=== PATIENT | female | born 1995 ===

== ENCOUNTER 2022-05-04 12:16 | Outpatient (REF) | payer OTHER, SELFPAY ==
[2022-05-04 14:37] LABS: Syphilis Screen Nonreactive (Nonreactive)
[2022-05-04 18:21] LABS: CT PCR NOT DETECTED (Not Detect.); NG PCR NOT DETECTED (Not Detect.)
[2022-05-05 09:25] LABS: HIV AB/AG Nonreactive (Nonreactive); HIV Num 1 0.08 S/CO (0.00-0.99)
[2022-05-05 17:22] LABS: Herpes Simplex Type 1 IgG <0.90 index; Herpes Simplex Type 2 IgG <0.90 index
== END 2022-05-04 12:17 | disposition home or self-care (01) ==
LOC: HO.10HDL 12:16
PROVIDERS: Visit Provider Internal Medicine
DX: Z00.00 Encounter for general adult medical examination without abnormal findings (principal); Z11.4 Encounter for screening for human immunodeficiency virus [HIV]; Z11.3 Encounter for screening for infections with a predominantly sexual mode of transmission
CPT/HCPCS: 86695; 86696; 86780; 87389; 87491; 87591

== ENCOUNTER 2023-04-03 12:42 | Outpatient (REF) | payer MEDICAID, SELFPAY | END 2023-04-03 12:43 | disposition home or self-care (01) | LOC: HO.LAB 12:42 | PROVIDERS: PCP Internal Medicine; Visit Provider Internal Medicine | DX: Z13.89 Encounter for screening for other disorder (principal) ==

== ENCOUNTER 2023-10-08 19:07 | Emergency (ER) | payer MEDICAID, SELFPAY ==
--- NOTE | ~2023-10-08 | XR_ITS ---
EXAMINATION: XR FINGER, LEFT CLINICAL INFORMATION: Laceration index finger COMPARISON: None available. TECHNIQUE: Three views of the left thumb. FINDINGS: No acute visible fracture or dislocation. Joint space alignment are maintained. Soft tissue defect noted along the volar aspect of the first distal interphalangeal joints. No definite radiopaque foreign body identified. XR/XR finger LT min 2V IMPRESSION: 1. No acute visible fracture or dislocation. 2. Soft tissue defect noted along the volar aspect of the first distal interphalangeal joint. 3. No definite radiopaque foreign body identified.
[2023-10-08 19:34] VITALS: BP 112/72; PULSE 84; RESP 18; TEMP 37; O2SAT 100; BMI 32.3
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
[2023-10-08] MEDS: Ibuprofen 600 MG TABLET PO (22:48)
[2023-10-08] MEDS: Diphth,Pertus(ACell),Tet Adult 0.5 ML SYRINGE IM (22:49)
[2023-10-08 22:53] VITALS: BP 112/69; PULSE 78; RESP 18; TEMP 37.1; O2SAT 99
== END 2023-10-08 22:54 | disposition home or self-care (01) ==
PROVIDERS: Emergency Provider Emergency Medicine; PCP Internal Medicine
DX: S61.012A Laceration without foreign body of left thumb without damage to nail, initial encounter (principal); S60.512A Abrasion of left hand, initial encounter; W26.0XXA Contact with knife, initial encounter; Y93.9 Activity, unspecified; Y92.9 Unspecified place or not applicable; Y99.8 Other external cause status; Z23 Encounter for immunization
CPT/HCPCS: 12002; 73140; 90471; 90715; 99283; 99284

== ENCOUNTER 2024-01-17 01:23 | Emergency (ER) | payer MEDICAID, SELFPAY ==
--- NOTE | 2024-01-17 | ECG_ITS ---
Test Reason : CHEST PAIN Blood Pressure : / mmHG Vent. Rate : 095 BPM Atrial Rate : 095 BPM P-R Int : 148 ms QRS Dur : 090 ms QT Int : 372 ms P-R-T Axes : 080 056 002 degrees QTc Int : 467 ms Normal sinus rhythm Nonspecific T wave abnormality Prolonged QT Abnormal ECG No previous ECGs available Referred By: Generic ED Physician Electronically Signed By:CELESTINO BARCENAS MD
[2024-01-17 01:25] VITALS: BP 123/73; PULSE 93; RESP 18; TEMP 36.8; O2SAT 100; BMI 29.0
[2024-01-17 01:46] LABS: Basophils Percent Auto 0.3 % (0-2); Eosinophils Absolute Auto 0.1 X10*3/uL (0.0-0.4); Eosinophils Percent Auto 0.6 % (0-4); Hematocrit 33.9 % (37.0-47.0); Hemoglobin 11.4 g/dl (12.0-16.0); Imm Gran Abs Auto 0.01 X10*3/uL (0.00-0.03); Imm Gran Pct Auto 0.1 % (0.0-0.4); Lymphocytes Absolute Auto 3.9 X10*3/uL (1.2-4.9); Lymphocytes Percent Auto 42.5 % (20-40); MANUAL DIFF FLAG NO; Mean Corpuscular HGB Conc 33.6 g/dl (31.0-35.0); Mean Corpuscular Hemoglobin 28.6 pg (27.0-33.0); Mean Corpuscular Volume 85.2 fL (80.0-98.0); Mean Platelet Volume 9.8 fL (9.4-12.3); Monocytes Absolute Auto 0.6 X10*3/uL (0.1-1.2); Monocytes Percent Auto 6.7 % (2-11); Neutrophils Absolute Auto 4.6 x10*3/uL (2.0-8.3); Neutrophils Percent Auto 49.8 % (45-73); Platelet Count 217 X10*3/uL (160-400); Red Blood Count 3.98 X10*6/uL (4.20-5.50); Red Cell Distribution Width 12.7 % (11.0-16.0); White Blood Count 9.2 X10*3/uL (4.8-10.8)
[2024-01-17 02:01] LABS: Alanine Aminotransferase 11 U/L (0-31); Albumin Level 4.4 g/dL (3.5-5.0); Alkaline Phosphatase 45 U/L (39-117); Anion Gap 12 (12-20); Aspartate Amino Transferase 12 U/L (5-31); Bilirubin Total 0.5 mg/dL (0.0-1.0); Blood Urea Nitrogen 11 mg/dL (9-16); Calcium 9.7 mg/dL (8.4-10.2); Carbon Dioxide 25 mmol/L (22-29); Chloride 108 mmol/L (96-108); Creatinine Clr Calc Pharmacy 125.9; Estimated Glomerular Filt Rate > 60; Glucose Random 94 mg/dL (60-115); Potassium 3.1 mmol/L (3.3-5.1); Sodium 142 mmol/L (135-145); Total Protein 7.2 g/dL (6.5-8.0)
[2024-01-17 02:12] LABS: Troponin-I High Sensitivity < 2.7 ng/L (<3.5-17.0)
[2024-01-17 02:26] LABS: Magnesium 2.1 mg/dL (1.6-2.6)
--- NOTE | 2024-01-17 03:10 | ED_ITS ---
HPI - Chest Pain General Chief Complaint: Chest Pain Stated Complaint: chest pains Time Seen by Provider: 01/17/24 03:05 Source: patient and old records reviewed Mode of arrival: ambulatory Limitations: no limitations History of Present Illness ED Provider: AMRITA MENDOZA narrative: 28 yo female with PMH of anxiety here with c/o chest pain, anxiety and palpitations - no travel, OCP use, procedures no known heart disease, no recent URI. Has life stress she has been dealing with makes her feel like her chest is tight MD complaint: chest pain Onset (ago): week(s) (1) Timing of current episode: constant Prior episodes: Yes Onset: during rest and during exertion Pain location: substernal Pain radiation: none Severity: moderate Quality: tightness Relieving factors: nothing Exacerbating factors: stress Associated symptoms: sense of impending doom and palpitations Treatment prior to arrival: none Related Data Previous Rx's ?Medication ?Instructions ?Recorded ibuprofen 600 mg tablet 600 mg PO Q6H PRN fever or pain 10/08/23 #14 tabs hydroxyzine HCl 25 mg tablet 25 mg PO BID PRN anxiety #30 tabs 01/17/24 Allergies Allergy/AdvReac Type Severity Reaction Status Date / Time No Known Allergies Allergy Verified 01/17/24 01:26 Review of Systems 2 Review of Systems: Constitutional : No Weight loss, No Fever, No Chills ENT/Mouth : No sore throat, No Rhinorrhea Eyes: No Eye Pain, No Swelling Cardiovascular : pos Chest Pain, no SOB, no Dyspnea on Exertion, No Orthopnea, No Edema, No Palpitations Respiratory : No Cough, No Sputum Gastrointestinal : no Nausea, No Vomiting, No Diarrhea, No abdominal Pain, No Hematochezia, No Melena Genitourinary : No Dysuria, No Urinary Frequency Musculoskeletal : No joint pain, No Myalgias, No Joint Swelling Skin : No Skin Lesions, No rash Neuro : No Weakness, No Numbness, No Dizziness, No Headache Psych : pos Anxiety/Panic, No Depression All other systems reviewed and are negative [facility] Past Medical History Attestation statement: The following information was validated with the patient. Source: old records reviewed Medical History Anxiety Social History Social History Advance Directives: No Advance Directives Information Provided: Yes Do you have a plan to hurt others: No Plan Physical Exam 2 Vital Signs: Vital Signs: Last Vital Signs Temp 98.2 F 01/17/24 01:25 Pulse 93 01/17/24 01:25 Resp 18 01/17/24 01:25 BP 123/73 01/17/24 01:25 Pulse Ox 100 01/17/24 01:25 O2 Del Method Room Air 01/17/24 01:25 BMI result Body Mass Index 29.0 Appearance: Alert. Oriented X3. No acute distress. Eyes: Pupils equal, round and reactive to light. ENT: Pharynx normal. Neck: Normal inspection. Neck supple. CVS: Normal heart rate and rhythm. Pulses normal. Respiratory: No respiratory distress. Breath sounds normal. Abdomen: Soft and nontender. Skin: Skin warm and dry. Normal skin color. Normal skin turgor. Extremities: No lower extremity edema. No calf ttp Neuro: Oriented X 3. No motor deficit. No sensory deficit. Medications Administered Discontinued Medications Generic Name Dose Route Start Last Admin Trade Name Freq PRN Reason Stop Dose Admin Lorazepam 0.5 mg 01/17/24 03:19 01/17/24 03:35 Lorazepam 0.5 Mg Tablet PO 01/17/24 03:20 0.5 mg ONCE ONE Administration Potassium Chloride 40 meq 01/17/24 02:11 01/17/24 03:35 Potassium Chloride Er 20 Meq Tab.Er.Prt PO 01/17/24 02:12 40 meq ONCE ONE Administration Medical Decision Making Medical Decision Making [facility] [place] Narrative: 28 yo female with PMH of anxiety here with c/o anxiety and chest pain/palpitations for 1 week brought on by life stress - no OCPs, travel, procedures risk factors for ACS. She denies n/v/d dyspnea. She does not have therapist. At this time labs, EKG, troponin x 1. PERC negative, doubt dissection distal pulses intact, Doubt ACS no risk factors. Does not have SI/HI can follow up with therapy as outpatient Differential Diagnosis Differential Diagnoses: The differential diagnosis associated with the presentation includes atypical chest pain anxiety PERC Negative doubt VTE distal pulses intact doubt dissection Admission/Observation Consideration of admission/observation: Escalation of care including admission/observation considered negative workup stable for DC Lab Data [facility] [place] Lab Attestation statement: I reviewed the patient's lab results. 01/17/24 01:41 01/17/24 01:41 Labs: Lab Results 01/17/24 Range/Units 01:41 WBC 9.2 (4.8-10.8) X10*3/uL RBC 3.98 L (4.20-5.50) X10*6/uL Hgb 11.4 L (12.0-16.0) g/dl Hct 33.9 L (37.0-47.0) % MCV 85.2 (80.0-98.0) fL MCH 28.6 (27.0-33.0) pg MCHC 33.6 (31.0-35.0) g/dl RDW 12.7 (11.0-16.0) % Plt Count 217 (160-400) X10*3/uL MPV 9.8 (9.4-12.3) fL Immature Gran % (Auto) 0.1 (0.0-0.4) % Neut % (Auto) 49.8 (45-73) % Lymph % (Auto) 42.5 H (20-40) % Tama % (Auto) 6.7 (2-11) % Eos % (Auto) 0.6 (0-4) % Baso % (Auto) 0.3 (0-2) % Lymph # (Auto) 3.9 (1.2-4.9) X10*3/uL Tama # (Auto) 0.6 (0.1-1.2) X10*3/uL Eos # (Auto) 0.1 (0.0-0.4) X10*3/uL Baso # (Auto) 0.0 (0.0-0.2) X10*3/uL Abs Immat Gran (auto) 0.01 (0.00-0.03) X10*3/uL Absolute Neuts (auto) 4.6 (2.0-8.3) x10*3/uL Absolute Nucleated RBC 0.000 (0.0-0.012) X10*3/uL Nucleated RBC % (auto) 0.0 (0.0-0.2) /100WBC Sodium 142 (135-145) mmol/L Potassium 3.1 L (3.3-5.1) mmol/L Chloride 108 (96-108) mmol/L Carbon Dioxide 25 (22-29) mmol/L Anion Gap 12 (12-20) BUN 11 (9-16) mg/dL Creatinine 0.71 (0.5-1.4) mg/dL Estim Creat Clear Calc 125.9 Estimated GFR > 60 Random Glucose 94 (60-115) mg/dL Calcium 9.7 (8.4-10.2) mg/dL Magnesium 2.1 (1.6-2.6) mg/dL Total Bilirubin 0.5 (0.0-1.0) mg/dL AST 12 (5-31) U/L ALT 11 (0-31) U/L Alkaline Phosphatase 45 (39-117) U/L Troponin I High Sens < 2.7 (<3.5-17.0) ng/L Total Protein 7.2 (6.5-8.0) g/dL Albumin 4.4 (3.5-5.0) g/dL Independent Interpretation I performed an independent interpretation of an: EKG Interpretation: Rate: 95 Rhythm: NSR [place]: normal Normal P waves. Normal JULY. Normal QRS complex. ST T wave : inverted t wave III, no LEILANI, nonspecific ST T wave changes lateral leads qTC: 467 prior studies: no prior The study has been interpreted contemporaneously by me. . Prescription Management I considered prescription management with: Other Discharge Plan Discharge Clinical Impression: Atypical chest pain, Acute hypokalemia, Anxiety Patient Disposition: Home, Self-Care Instructions: Chest Pain (ED), Hypokalemia (ED), Anxiety (ED) Additional Instructions: very mild anemia your doctor can monitor this is is very mild low potassium we repleted it please monitor your symptoms return for any worsening symptoms or concerns you can contact [facility] there are two offices [place] or [place] call to schedule appointment Prescriptions: New hydroxyzine HCl 25 mg tablet 25 mg PO BID PRN (Reason: anxiety) Qty: 30 0RF No Action ibuprofen 600 mg tablet 600 mg PO Q6H PRN (Reason: fever or pain) Qty: 14 0RF Stand Alone Forms: Work/School Release Print Language: Ghanaian
[2024-01-17] MEDS: Potassium Chloride ER 20 MEQ TAB.ER.PRT 40 MEQ PO (03:35)
[2024-01-17] MEDS: LORazepam 0.5 MG TABLET PO (03:35)
[2024-01-17 03:52] VITALS: BP 107/59; PULSE 66; RESP 16; O2SAT 97
[2024-01-17 03:58] VITALS: BP 107/59; PULSE 66; RESP 16; TEMP 36.6; O2SAT 97
[2024-01-17 04:01] LABS: Appearance Urine Clear; Color Urine Yellow; Glucose Urine UA Negative (Negative); Leukocyte Esterase Urine Negative (Negative); Nitrite Urine Negative (Negative); Specific Gravity - Urine >= 1.030 (1.005-1.025); UPreg QC Valid YES; Urine Blood Negative (Negative); Urine Ketones Trace mg/dL (Negative); Urine Pregnancy NEGATIVE (NEGATIVE); Urine Protein Negative (Neg-Trace)
[2024-01-17 04:05] LABS: Bacteria Urine None Seen (None Seen); Hyaline Casts Urine 0-2 /LPF (0-2); RBC Urine 0-2 /HPF (0-2); Squamous Epithelial Cell Urine 0-2 /HPF (0-2); WBC Urine 0-5 /HPF (0-5)
== END 2024-01-17 03:58 | disposition home or self-care (01) ==
PROVIDERS: Emergency Provider Emergency Medicine; PCP Internal Medicine
DX: R07.89 Other chest pain (principal); E87.6 Hypokalemia; F41.9 Anxiety disorder, unspecified
CPT/HCPCS: 36415; 80053; 81001; 81025; 83735; 84484; 85025; 93005; 99284

== ENCOUNTER → 2024-01-17 01:23 | Outpatient (BNV) | payer MEDICAID, SELFPAY | PROVIDERS: Emergency Provider Emergency Medicine; PCP Internal Medicine; Visit Provider Internal Medicine Cardiovascular Disease | DX: R07.9 Chest pain, unspecified (principal); R94.31 Abnormal electrocardiogram [ECG] [EKG] | CPT/HCPCS: 93010 ==

== ENCOUNTER 2024-02-06 12:16 | Outpatient (REF) | payer MEDICAID, SELFPAY ==
[2024-02-06 13:12] LABS: MANUAL DIFF FLAG NO
[2024-02-06 13:45] LABS: Basophils Percent Auto 0.4 % (0-2); Eosinophils Percent Auto 0.4 % (0-4); Hematocrit 37.1 % (37.0-47.0); Hemoglobin 12.2 g/dl (12.0-16.0); Imm Gran Abs Auto 0.02 X10*3/uL (0.00-0.03); Imm Gran Pct Auto 0.3 % (0.0-0.4); Lymphocytes Absolute Auto 2.6 X10*3/uL (1.2-4.9); Lymphocytes Percent Auto 34.8 % (20-40); Mean Corpuscular HGB Conc 32.9 g/dl (31.0-35.0); Mean Corpuscular Hemoglobin 28.8 pg (27.0-33.0); Mean Corpuscular Volume 87.7 fL (80.0-98.0); Mean Platelet Volume 10.2 fL (9.4-12.3); Monocytes Absolute Auto 0.5 X10*3/uL (0.1-1.2); Monocytes Percent Auto 6.7 % (2-11); Neutrophils Absolute Auto 4.3 x10*3/uL (2.0-8.3); Neutrophils Percent Auto 57.4 % (45-73); Platelet Count 233 X10*3/uL (160-400); Red Blood Count 4.23 X10*6/uL (4.20-5.50); White Blood Count 7.4 X10*3/uL (4.8-10.8)
[2024-02-06 14:12] LABS: Alanine Aminotransferase 13 U/L (0-31); Albumin Level 4.4 g/dL (3.5-5.0); Alkaline Phosphatase 46 U/L (39-117); Anion Gap 14 (12-20); Aspartate Amino Transferase 14 U/L (5-31); Bilirubin Total 1.1 mg/dL (0.0-1.0); Blood Urea Nitrogen 10 mg/dL (9-16); Calcium 9.4 mg/dL (8.4-10.2); Carbon Dioxide 25 mmol/L (22-29); Chloride 105 mmol/L (96-108); Estimated Glomerular Filt Rate > 60; Glucose Random 89 mg/dL (60-115); Potassium 3.7 mmol/L (3.3-5.1); Sodium 140 mmol/L (135-145); Total Protein 7.6 g/dL (6.5-8.0)
[2024-02-06 14:14] LABS: Ferritin 70 ng/mL (10-122)
[2024-02-06 14:19] LABS: Vitamin B12 298 pg/mL (200-900)
[2024-02-06 14:58] LABS: CT PCR NOT DETECTED (Not Detect.); NG PCR NOT DETECTED (Not Detect.)
[2024-02-07 07:24] LABS: HIV AB/AG Nonreactive (Nonreactive); HIV Num 1 0.07 S/CO (0.00-0.99)
[2024-02-07 07:36] LABS: Syphilis Screen Nonreactive (Nonreactive)
[2024-02-07 17:38] LABS: Herpes Simplex Type 1 IgG <0.90 index; Herpes Simplex Type 2 IgG <0.90 index
== END 2024-02-06 12:17 | disposition home or self-care (01) ==
LOC: HO.10HDL 12:16
PROVIDERS: Visit Provider Internal Medicine
DX: D64.9 Anemia, unspecified (principal); E87.6 Hypokalemia; F32.2 Major depressive disorder, single episode, severe without psychotic features; F41.0 Panic disorder [episodic paroxysmal anxiety]; R63.4 Abnormal weight loss
CPT/HCPCS: 80053; 82607; 82728; 84443; 85025; 86695; 86696; 86780; 87389; 87491; 87591

== ENCOUNTER 2024-02-21 08:37 | Emergency (ER) | payer MEDICAID, SELFPAY ==
[2024-02-21 08:49] VITALS: BP 00/00; BP 116/70; PULSE 82; PULSE 92; RESP 20; TEMP 35.9; O2SAT 100; BMI 34.2
[2024-02-21 09:12] LABS: MANUAL DIFF FLAG NO
[2024-02-21 09:16] LABS: Basophils Percent Auto 0.2 % (0-2); Eosinophils Percent Auto 0.1 % (0-4); Hematocrit 38.4 % (37.0-47.0); Hemoglobin 12.9 g/dl (12.0-16.0); Imm Gran Abs Auto 0.05 X10*3/uL (0.00-0.03); Imm Gran Pct Auto 0.4 % (0.0-0.4); Lymphocytes Absolute Auto 1.4 X10*3/uL (1.2-4.9); Lymphocytes Percent Auto 10.7 % (20-40); Mean Corpuscular HGB Conc 33.6 g/dl (31.0-35.0); Mean Corpuscular Hemoglobin 28.5 pg (27.0-33.0); Mean Platelet Volume 9.5 fL (9.4-12.3); Monocytes Absolute Auto 0.3 X10*3/uL (0.1-1.2); Monocytes Percent Auto 2.2 % (2-11); Neutrophils Absolute Auto 11.6 x10*3/uL (2.0-8.3); Neutrophils Percent Auto 86.4 % (45-73); Platelet Count 281 X10*3/uL (160-400); Red Blood Count 4.52 X10*6/uL (4.20-5.50); Red Cell Distribution Width 12.5 % (11.0-16.0); White Blood Count 13.4 X10*3/uL (4.8-10.8)
[2024-02-21 09:32] LABS: Alanine Aminotransferase 17 U/L (0-31); Albumin Level 4.7 g/dL (3.5-5.0); Alkaline Phosphatase 49 U/L (39-117); Anion Gap 17 (12-20); Aspartate Amino Transferase 19 U/L (5-31); Bilirubin Direct 0.3 mg/dL (0.0-0.5); Bilirubin Total 0.8 mg/dL (0.0-1.0); Blood Urea Nitrogen 11 mg/dL (9-16); Carbon Dioxide 20 mmol/L (22-29); Chloride 106 mmol/L (96-108); Estimated Glomerular Filt Rate > 60; Glucose Random 137 mg/dL (60-115); Lipase 17 U/L (8-78); Potassium 3.4 mmol/L (3.3-5.1); Sodium 140 mmol/L (135-145); Total Protein 7.9 g/dL (6.5-8.0)
[2024-02-21] MEDS: Ondansetron ODT 4 MG TAB.RAPDIS TRANSLINGU (11:17)
[2024-02-21 11:18] VITALS: BP 111/67; PULSE 83; RESP 18; TEMP 36.7; O2SAT 97
== END 2024-02-21 13:49 | disposition left against medical advice (07) ==
PROVIDERS: Emergency Provider Emergency Medicine; PCP Internal Medicine
DX: R11.2 Nausea with vomiting, unspecified (principal); F41.0 Panic disorder [episodic paroxysmal anxiety]; Z53.21 Procedure and treatment not carried out due to patient leaving prior to being seen by health care provider
CPT/HCPCS: 36415; 80053; 82248; 83690; 85025; 99281

== ENCOUNTER 2024-03-03 17:10 | Emergency (ER) | payer MEDICAID, SELFPAY ==
--- NOTE | ~2024-03-03 | XR_ITS ---
EXAMINATION: XR FINGER, LEFT CLINICAL INFORMATION: Cut second digit finger. Pain. COMPARISON: None available. TECHNIQUE: 2 views of the left second digit. FINDINGS: Soft tissue laceration along the distal phalangeal tuft second digit. There is no acute fracture, dislocation or subluxation seen. The soft tissues are normal. XR/XR finger LT min 2V IMPRESSION: Soft tissue laceration along the distal phalangeal tuft second digit. No visible acute fracture or dislocation seen. Electronically signed by: Peter Masterson MD 03/03/2024 07:00 PM EDT RP
[2024-03-03 17:36] VITALS: BP 107/81; PULSE 98; RESP 18; TEMP 36.4; O2SAT 97; BMI 28.2
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
[2024-03-03 21:00] VITALS: BP 115/81; PULSE 65; RESP 16; TEMP 36.7; O2SAT 96
--- NOTE | 2024-03-03 21:01 | MHC.EDTECH ---
This pct just assumed care of patient vitals take ,Call ortiz within pt reach .
[2024-03-03] MEDS: NaPROXEN 500 MG TABLET PO (22:09)
[2024-03-03] MEDS: Bacitracin Oint 0.9 GM PACKET 1 APPL TOPICAL (22:10)
[2024-03-03] MEDS: oxyCODONE HCl Immed Release 5 MG TABLET 10 MG PO (22:10)
[2024-03-03 22:42] VITALS: BP 115/81; PULSE 65; RESP 16; TEMP 36.7; O2SAT 96
== END 2024-03-03 22:42 | disposition home or self-care (01) ==
PROVIDERS: Emergency Provider Emergency Medicine Emergency Medical Services; PCP Internal Medicine
DX: S61.201A Unspecified open wound of left index finger without damage to nail, initial encounter (principal); M79.642 Pain in left hand; W26.0XXA Contact with knife, initial encounter; Y93.89 Activity, other specified; Y92.89 Other specified places as the place of occurrence of the external cause; Y99.8 Other external cause status
CPT/HCPCS: 73140; 99283

== ENCOUNTER 2024-03-06 13:56 | Outpatient (AMB) | payer MEDICAID, SELFPAY ==
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
[2024-03-06 14:39] VITALS: BMI 28.2
== END 2024-03-07 09:07 | disposition home or self-care (01) ==
PROVIDERS: PCP Internal Medicine; Visit Provider Orthopaedic Surgery
DX: S61.211A Laceration without foreign body of left index finger without damage to nail, initial encounter (principal)
CPT/HCPCS: 99203

== ENCOUNTER → 2024-03-06 13:56 | Outpatient (BNVA) | payer MEDICAID, SELFPAY | PROVIDERS: PCP Internal Medicine; Visit Provider Orthopaedic Surgery | DX: S61.211A Laceration without foreign body of left index finger without damage to nail, initial encounter (principal) | CPT/HCPCS: 99202 ==

== ENCOUNTER 2025-01-28 00:16 | Emergency (ER) | payer MEDICAID, SELFPAY ==
[2025-01-28 00:17] VITALS: BP 122/68; PULSE 76; RESP 20; TEMP 36.2; O2SAT 99; BMI 31.9
[2025-01-28 04:06] VITALS: BP 128/60; PULSE 68; RESP 14; TEMP 36.6; O2SAT 98
--- OUTSIDE RECORDS SUMMARY | 2025-01-28 06:44 | XMS_ITS | Encounter Summary ---
Author Organization [facility] Address [address] [place] [phone] Phone Care Team Providers Care Machine Tool Technology Instructor Name Role Phone Pcp, Unknown Primary Care Provider Unavailabl e Encounter Details Date Type Department Care Team (Late Contact Info) Description 12/12/2020 Procedure Pass OR Admitting Dept - Virtual Department [address] [place] [address] Social History Tobacco Use Types Packs/Day Years Used Date Smoking Tobacco: Never Smokeless Tobacco: Never Alcohol Use Standard Drinks/Week Comments Yes 0 (1 standard drink = 0.6 oz pur e alcohol) socially Comments Unknown Sex and Gender Information Value Date Recorded Sex Assigned at Female 11/02/2020 1:26 PM EDT Legal Sex Female 12:54 PM EDT Gender Identity Female 11/02/2020 1:26 PM EDT Sexual Orientation Straight 12/11/2020 4: 30 AM EDT documented as of this encounter Plan of Treatment Upcoming Encounters Date Type Department Care Team (Late Contact Info) Description 02/13/2025 2:10 PM EDT Routine [facility] [address] [place] [address] Mesha Elizondo CNM [address] [facility], [address] [place] [address] [email or web address] documented as of this encounter Visit Diagnoses Not on filedocumented in this encounter Care Teams Machine Tool Technology Instructor Relationship Specialty Start Date End Date Pcp, Unknown PCP - General 5/3/21 documented as of this encounter Additional Source Comments The information contained in this document represents components of the legal health record. It is not the complete legal health record.[facility]
--- OUTSIDE RECORDS SUMMARY | 2025-01-28 06:44 | XMS_ITS | Clinical Summary ---
Author Organization [facility] Address [address] [place] [address] Care Team Providers Care Urogynecology Physician Name Role Phone Unavailable Primary Care Provider Unavailabl e Social History Tobacco Use Types Packs/Day Years Used Date Smoking Tobacco: Never Assessed Comments Unknown Sex and Gender Information Value Date Recorded Sex Assigned at Not on file Legal Sex Female 2:44 PM EDT Gender Identity Not on file Sexual Orientation Not on file Plan of Treatment Health Maintenance Due Date Last Done Comments Hepatitis C Screening 1994 Pap Smear 2010 DTaP/Tdap/Td (1 - Tdap) 2012 Hep B (1 of 3 - 19+ 3-dose series) 2013 COVID-19 Vaccine (2023-2 5 season) 2024 Influenza (#1) 2025 Zoster (Shingrix) (1 of 2) 2044 HPV Vaccine (No Doses Required) Completed Hep A Aged Out No longer eligi ble based on patient's age to complete this topic Hib Aged Out No longer eligi ble based on patient's age to complete this topic Meningococcal ACWY Aged Out No longer eligible based on patient's age to complete this topic Pneumococcal Aged Out No longer eligi ble based on patient's age to complete this topic
--- NOTE | 2025-01-28 07:25 | ED.GENADULT ---
HPI - General Adult General Chief complaint: Fall Stated complaint: , fall Time Seen by Provider: 01/28/25 07:25 History of Present Illness ED Provider: Brigida MENDOZA narrative: The patient is a 29-year-old female who says that she slipped and fell in her apartment yesterday evening. She says that her dog like ice. She put out some ice for her dog in a bowl. She says that she came to the kitchen later and did not realize there was wetness on the floor and she slipped and landed on her buttocks. She is approximately 9 weeks . She was concerned about the and came to the emergency room for evaluation. Somebody dropped her off in the hospital. The patient says that she has been seen for this at the [facility] poultry trimmer practice. She says she had an ultrasound after some spotting. No abdominal pain or spotting at the moment. She has pain mostly in the right lower back. No other injuries. She did not hit her head. Related Data Previous Rx's ?Medication ?Instructions ?Recorded ibuprofen 600 mg tablet 600 mg PO Q6H PRN fever or pain 10/08/23 #14 tabs hydroxyzine HCl 25 mg tablet 25 mg PO BID PRN anxiety #30 tabs 01/17/24 oxycodone 5 mg tablet 5 mg PO Q6H PRN pain #10 tabs 03/03/24 acetaminophen 325 mg capsule 650 mg (2 x 325 mg) PO Q6H PRN 01/28/25 pain #20 caps Allergies Allergy/AdvReac Type Severity Reaction Status Date / Time No Known Allergies Allergy Verified 01/28/25 00:20 Review of Systems Review of Systems: Yes all other systems are reviewed and are negative [facility] Past Medical History Medical History Anxiety Social History Social History Advance Directives: No Advance Directives Information Provided: Yes Do you have a plan to hurt others: No Plan Physical Exam ED Vital Signs: Vital Signs - 24 hr 01/28/25 07:52 Temperature 97 F Pulse Rate 71 Respiratory Rate 16 Blood Pressure 106/69 Pulse Oximetry 99 Oxygen Delivery Method Room Air BMI result Body Mass Index 31.9 Const Other: The patient is awake, alert, pleasant, cooperative. She seems mildly uncomfortable in changing positions but does not seem severely injured in any way. She does not appear acutely ill. Orientation/consciousness: patient oriented x3 HENMT Other: No sign of trauma to the head or the face. The face is symmetrical. Mucous membranes moist. Eyes Other: Pupils are round equal, conjunctivae are clear, extraocular movements intact Neck Other: No posterior midline C-spine tenderness. She is moving her neck easily without discomfort. Her C-spine is clinically clear. Resp Effort & Inspection: normal respiratory effort Auscultation: clear to auscultation bilaterally Cardio Rate: regular rate Rhythm: regular rhythm Heart sounds: S1 normal heart sound present and S2 normal heart sound present GI Other: Abdomen is soft and nontender Back/Spine/Pelvis Other: No midline vertebral tenderness in the back. There is some tenderness in the region of the right posterior superior iliac spine. Skin Other: The skin is intact and unremarkable. No bruising. Neuro Other: 1+ reflexes at the knees and ankles. General: patient oriented x3, gait normal, tone normal, moves all extremities, no focal motor deficits and CN's II-XI intact bilaterally Extrem Other: No signs of injury to the extremities. No deformities. No peripheral edema. Medications Administered Discontinued Medications Generic Name Dose Route Start Last Admin Trade Name Freq PRN Reason Stop Dose Admin Acetaminophen 650 mg 01/28/25 07:33 01/28/25 07:49 Acetaminophen 325 Mg Tablet PO 01/28/25 07:34 650 mg ONCE ONE Administration Medical Decision Making Medical Decision Making [facility] Narrative: The patient is a 29-year-old female who comes to the emergency room after a slip and fall injury at home. She slipped on a wet floor. She landed on her buttocks. She has some low back pain, primarily in the right side. She does not seem severely injured in any way. She reports that she is 9 weeks . She has been seen at the poultry trimmer practice at [facility] and had an ultrasound. She currently has no abdominal pain, pelvic pain or vaginal symptoms. No vaginal discharge. No vaginal bleeding. I believe the patient came to the emergency room out has been abundance of caution given her . This is her 1st . She does not seem severely injured. I do not see an indication for imaging of any kind. She is reassured that a fall of this nature it would be unlikely to affect the . She is advised she may use acetaminophen as needed for discomfort. She should follow up with her PCP and her poultry trimmer practice. Discharge Plan Discharge Clinical Impression: Fall, Back strain, Patient Disposition: Home, Self-Care Additional Instructions: You may use acetaminophen (Tylenol) as needed for pain. I think it is very unlikely a fall like this would have any effect on your . Please stay in touch with your poultry trimmer for additional instructions as needed. You may also contact your regular doctor if you have one. Return to the emergency room if significantly worse. Prescriptions: New acetaminophen 325 mg capsule 650 mg PO Q6H PRN (Reason: pain) Qty: 20 0RF No Action hydroxyzine HCl 25 mg tablet 25 mg PO BID PRN (Reason: anxiety) Qty: 30 0RF oxycodone 5 mg tablet 5 mg PO Q6H PRN (Reason: pain) Qty: 10 0RF Rx Instructions: Patient may request partial refill; Partial Fill upon patient request. ibuprofen 600 mg tablet 600 mg PO Q6H PRN (Reason: fever or pain) Qty: 14 0RF Referrals: Malik Puri [facility] [Outside] Discharge Date/Time: 01/28/25 07:52 Print Language: [place]
[2025-01-28 07:52] VITALS: BP 106/69; PULSE 71; RESP 16; TEMP 36.1; O2SAT 99
== END 2025-01-28 07:52 | disposition home or self-care (01) ==
PROVIDERS: Emergency Provider Emergency Medicine
DX: O9A.211 Injury, poisoning and certain other consequences of external causes complicating pregnancy, first trimester (principal); S39.012A Strain of muscle, fascia and tendon of lower back, initial encounter; W01.0XXA Fall on same level from slipping, tripping and stumbling without subsequent striking against object, initial encounter; Z3A.09 9 weeks gestation of pregnancy; Y93.89 Activity, other specified; Y92.030 Kitchen in apartment as the place of occurrence of the external cause; Y99.8 Other external cause status
CPT/HCPCS: 99283